=== PATIENT | female | born 1955 | race Hispanic/Latino ===

== ENCOUNTER 2024-09-11 10:49 | Emergency (ER) | payer MEDICARE, OTHER ==
[~2024-09-11] VITALS: Ht 154.9 cm; Wt 92.1 kg
[2024-09-11 11:45] LABS: LEUKOCYTE ESTERASE ,URINE LARGE (NEGATIVE); PROTEIN,URINE DIPSTICK NEGATIVE (NEGATIVE); URINE UROBILINOGEN 0.2 mg/dL (0.2 - 1)
[2024-09-11 11:46] LABS: EPITHELIAL CELLS,URINE FEW /LPF; WBC,URINE (MAN) 21-50 /HPF (0-5)
[2024-09-11 12:04] LABS: BASOPHILS % 0.9 % (0.0-1.0); EOSINOPHILS % 1.9 % (0.0-6.0); LYMPHOCYTES % 46.9 % (18.0-39.1); MONOCYTES % 6.8 % (4.4-11.3); NEUTROPHILS % 43.4 % (38.7-80.0); RED CELL DISTRIBUTION WIDTH 13.2 % (11.7-14.4)
[2024-09-11 12:18] LABS: EST GLOMERULAR FILTRATION RATE 71.0 ML/MIN (>=60)
[2024-09-11 15:07] VITALS: PULSE 94; RESP 16; TEMP 98.1; O2SAT 100
[2024-09-11] MEDS ORDERED: CEFPODOXIME PR200 MG PO (15:18)
== END 2024-09-11 15:23 | disposition home or self-care (01) ==
LOC: ER 10:55
DX: R41.82 Altered mental status, unspecified (principal); N39.0 Urinary tract infection, site not specified; I10 Essential (primary) hypertension; R73.03 Prediabetes; E03.9 Hypothyroidism, unspecified
CPT/HCPCS: 36415; 70450; 80053; 81001; 84439; 84443; 85025; 87086; 99284; J0696

== ENCOUNTER 2024-09-29 22:23 | Observation (INO) | payer MEDICARE ==
[~2024-09-29] VITALS: Ht 180.3 cm; Wt 92.1 kg
[~2024-09-29 22:23] MED LIST: CEFPODOXIME PR200 MG PO
[2024-09-29 22:45] VITALS: TEMP 97.4
[2024-09-29 23:00] VITALS: PULSE 90; RESP 21
[2024-09-29 23:20] LABS: BASOPHILS % 0.7 % (0.0-1.0); EOSINOPHILS % 2.4 % (0.0-6.0); LYMPHOCYTES % 39.9 % (18.0-39.1); MONOCYTES % 5.8 % (4.4-11.3); NEUTROPHILS % 50.7 % (38.7-80.0); RED CELL DISTRIBUTION WIDTH 13.4 % (11.7-14.4)
[2024-09-29] MEDS: SODIUM CHLORIDE 0.9% 1000ML 1,000 ML IV STA (23:22)
[2024-09-29 23:39] LABS: EST GLOMERULAR FILTRATION RATE 77.0 ML/MIN (>=60)
[2024-09-30] VITALS (10 sets, daily range): BP systolic 106–136; BP diastolic 54–75; PULSE 81–88; RESP 17–18; TEMP 97.1–98.1; O2SAT 96–98
[2024-09-30] MEDS: Morphine 4mg INJECTION 4 MG/ML INJ IV PRN (01:05)
[2024-09-30] MEDS: ONDANSETRON HCL INJ 2MG/ML 2ML 2 MG/ML VIAL IV PRN (01:06)
[2024-09-30] MEDS: SODIUM CHLORIDE 0.9% 1000ML 1,000 ML IV SCH (01:37)
[2024-09-30 16:42] LABS: T3 UPTAKE 28.56 % (22.5-37.0)
[2024-09-30] MEDS: ACETAMINOPHEN 325 MG TAB PO PRN (19:49)
[2024-10-01] VITALS: BP 137/82; PULSE 84; RESP 20; TEMP 98.3; O2SAT 98
[2024-10-01 04:00] VITALS: BP 148/79; PULSE 85; RESP 20; TEMP 98.6; O2SAT 93
[2024-10-01 05:55] LABS: BASOPHILS % 0.6 % (0.0-1.0); EOSINOPHILS % 3.0 % (0.0-6.0); LYMPHOCYTES % 28.9 % (18.0-39.1); MONOCYTES % 6.2 % (4.4-11.3); NEUTROPHILS % 60.9 % (38.7-80.0); RED CELL DISTRIBUTION WIDTH 13.5 % (11.7-14.4)
[2024-10-01 06:25] LABS: EST GLOMERULAR FILTRATION RATE 90.0 ML/MIN (>=60)
[2024-10-01 06:40] LABS: CHOL/HDL RATIO 4.1 (3.0-3.6); LDL CHOLESTEROL 136.0 MG/DL (60-130)
[2024-10-01 08:00] VITALS: BP 115/65; PULSE 74; RESP 19; TEMP 97.9; O2SAT 96
[2024-10-01] MEDS: METOPROLOL SUCCINATE 25 MG TAB XL PO SCH (08:17)
[2024-10-01] MEDS ORDERED: DULOXETINE HCL60 MG PO (08:23)
[2024-10-01 09:00] VITALS: BP 115/65; PULSE 74; RESP 19; TEMP 97.9; O2SAT 96
[2024-10-01 12:00] VITALS: BP 140/90; PULSE 80; RESP 20; TEMP 98.3; O2SAT 99
[2024-10-01] MEDS ORDERED: TOPROL XL25 MG PO (14:28)
[2024-10-01] MEDS ORDERED: SYNTHROID125 MCG PO (14:28)
[2024-10-01 16:00] VITALS: BP 138/95; PULSE 63; RESP 21; TEMP 98.6; O2SAT 97
[2024-10-01] MEDS ORDERED: ATORVASTATIN 20 MG TAB PO SCH (21:00)
[2024-10-02] MEDS ORDERED: LEVOTHYROXINE SODIUM 125 MCG TAB PO SCH (06:00)
== END 2024-10-01 17:40 | disposition home or self-care (01) ==
LOC: ER 22:31 → ERHOLD 09-30 00:05 → MED/SURG2 09-30 01:26
PROVIDERS: ADMIT Internal Medicine; ATTEND Internal Medicine
DX: R07.89 Other chest pain (principal); I10 Essential (primary) hypertension; R00.2 Palpitations; E03.9 Hypothyroidism, unspecified; E78.5 Hyperlipidemia, unspecified; E66.01 Morbid (severe) obesity due to excess calories; Z68.28 Body mass index [BMI] 28.0-28.9, adult
CPT/HCPCS: 36415 ×3; 70450; 71045; 80053 ×2; 80061; 82550 ×2; 83880; 84436; 84439; 84443; 84479; 84481; 84484 ×2; 85025 ×2; 93005; 93306; 94799; 99284; G0378 ×2; J2270; J2405; J7030 ×3